=== PATIENT | female | born 1955 | race Caucasian/White ===

== ENCOUNTER → 2022-05-06 14:30 | Outpatient (CLI) | payer BC, SELFPAY ==
--- NOTE | ~2022-05-06 | XR_ITS ---
EXAMINATION: XR abdomen/kub 1V DATE: 05/06/2022 14:50 INDICATION: Calcium kidney stone TECHNIQUE: A supine view of the abdomen was obtained. COMPARISON: None. FINDINGS: 4 mm calcific lesion projecting over the upper pole of the left kidney and 2 mm calcific lesion proje cting over the interpolar region of the left kidney suspicious for renal stones. There is a 3 mm dens ity projecting over the lower pole of the right kidney potentially an additional renal stone however specificity is limited by the mottled pattern of stool in the superimposed proximal transverse colon. A few small round calcifications in the both the left and right hemipelvis with appearance favoring phleboliths although differential would include distal ureteral stones. Normal bowel gas pattern. Ost eitis pubis. IMPRESSION: 1. 4 mm and 2 mm calcific densities project over the left kidney consistent with renal stones and pos sible 3 mm calcification at the right kidney, specificity for which is decreased by superimposed stoo l in the colon. 2. A few 2-4 mm round calcifications in the left and right pelvis most likely representing phlebolith s although ureteral stones cannot be absolutely excluded. Reviewed, dictated and finalized at location A. IMPRESSION: 1. 4 mm and 2 mm calcific densities project over the left kidney consistent wit h renal stones and possible 3 mm calcification at the right kidney, specificity for which is decreased by superimposed stool in the colon. 2. A few 2-4 mm round calcifications in the left and right pelvis most likely r epresenting phleboliths although ureteral stones cannot be absolutely excluded.
== END ==
PROVIDERS: PCP Urology; Visit Provider Urology
DX: N20.0 Calculus of kidney (principal)
CPT/HCPCS: 74018